=== PATIENT | male | born 1935 | race Asian ===

== ENCOUNTER 2017-10-28 16:39 | Inpatient (IN) | payer OTHER ==
[~2017-10-28] VITALS: Ht 170.2 cm; Wt 82.7 kg
[~2017-10-28 16:39] MED LIST: AZATHIOPRINE50 MG PO; CARVEDILOL25 M1 PO; DILTIAZEM HCL120 M2 PO; DILTIAZEM HCL240 MG PO; LOSARTAN POTAS100 M1 PO; PROSCAR5 MG PO; TERAZOSIN HCL2 MG PO
[2017-10-28 16:41] VITALS: Ht 170.2 cm; Wt 82.7 kg
[2017-10-28 18:05] LABS: PLATELET COUNT 147 x10^3mcL (130-400); RED CELL DISTRIBUTION WIDTH 12.2 % (11.5-14.5)
[2017-10-28 18:06] LABS: BASOPHIL % 0 % (0-2)
[2017-10-28 18:30] LABS: microscopic required? YES; urine erythrocyte TRACE (NEGATIVE)
[2017-10-28 18:38] LABS: CALCIUM 7.9 mg/dL (8.5-10.1); CARBON DIOXIDE 27.5 mmol/L (21-32); CHLORIDE SERUM 100 mmol/L (98-107); GLUCOSE SERUM 125 mg/dL (74-106); SODIUM SERUM 135 mmol/L (136-145)
[2017-10-28 18:43] LABS: ALBUMIN 2.9 g/dL (3.4-5.0); ALKALINE PHOSPHATASE 60 U/L (46-116); ALT/SGPT 41 U/L (16-63); AST/SGOT 27 U/L (15-37); TOTAL PROTEIN, SERUM 7.1 g/dL (6.4-8.2)
[2017-10-28] MEDS ORDERED: SIMVASTATIN10 M1 PO (18:44)
[2017-10-28 20:15] VITALS: BP 150/72
[2017-10-28 20:18] LABS: MAGNESIUM 2.1 mg/dL (1.8-2.4); PHOSPHOROUS 2.4 mg/dL (2.5-4.9)
[2017-10-28 20:26] LABS: FREE T4 1.16 ng/dL (0.76-1.46); FREE THYROXINE INDEX 2.1 ug/dL (1.4-4.5); T3 TOTAL 0.63 ng/mL; T4(THYROXINE) 5.8 ug/dL (4.7-13.3)
[2017-10-28 20:47] LABS: AMPHETAMINE QUAL UR NONE DETECTED
[2017-10-29 00:43] VITALS: BP 150/72
[2017-10-29 04:12] VITALS: BP 155/75
[2017-10-29 07:32] LABS: CALCIUM 7.7 mg/dL (8.5-10.1); CARBON DIOXIDE 26.7 mmol/L (21-32); CHLORIDE SERUM 103 mmol/L (98-107); CHOLESTEROL 164 mg/dL (<200); CHOLESTEROL/HDL RATIO 3.2; CREATININE SERUM 0.8 mg/dL (0.7-1.3); GLUCOSE SERUM 118 mg/dL (74-106); HDL CHOLESTEROL 52 mg/dL (40-60); POTASSIUM SERUM 3.4 mmol/L (3.5-5.1); SODIUM SERUM 138 mmol/L (136-145); TRIGLYCERIDES 51 mg/dL (<150)
[2017-10-29 07:34] LABS: BASOPHIL % 0.3 % (0-2); PLATELET COUNT 140 x10^3mcL (130-400)
[2017-10-29 08:58] VITALS: BP 133/66
[2017-10-29 16:30] VITALS: BP 144/69
[2017-10-29 21:30] VITALS: BP 166/79
[2017-10-30 09:04] LABS: BASOPHIL % 0.3 % (0-2); PLATELET COUNT 145 x10^3mcL (130-400); RED CELL DISTRIBUTION WIDTH 12.3 % (11.5-14.5)
[2017-10-30 09:09] LABS: CALCIUM 7.9 mg/dL (8.5-10.1); CARBON DIOXIDE 26.4 mmol/L (21-32); CHLORIDE SERUM 101 mmol/L (98-107); GLUCOSE SERUM 187 mg/dL (74-106); MAGNESIUM 1.8 mg/dL (1.8-2.4); PHOSPHOROUS 2.2 mg/dL (2.5-4.9); POTASSIUM SERUM 3.4 mmol/L (3.5-5.1); SODIUM SERUM 136 mmol/L (136-145)
[2017-10-30 10:17] VITALS: BP 120/57
[2017-10-30 13:36] VITALS: BP 105/54
[2017-10-30 17:35] VITALS: BP 105/62
[2017-10-30 21:35] VITALS: BP 108/60
[2017-10-31 05:02] VITALS: BP 126/71
[2017-10-31 06:40] LABS: BASOPHIL % 0.3 % (0-2); PLATELET COUNT 179 x10^3mcL (130-400); RED CELL DISTRIBUTION WIDTH 12.3 % (11.5-14.5)
[2017-10-31 07:33] LABS: CALCIUM 8.1 mg/dL (8.5-10.1); CARBON DIOXIDE 25.8 mmol/L (21-32); CHLORIDE SERUM 98 mmol/L (98-107); CREATININE SERUM 0.9 mg/dL (0.7-1.3); GLUCOSE SERUM 118 mg/dL (74-106); MAGNESIUM 1.9 mg/dL (1.8-2.4); PHOSPHOROUS 2.4 mg/dL (2.5-4.9); POTASSIUM SERUM 3.5 mmol/L (3.5-5.1); SODIUM SERUM 136 mmol/L (136-145)
[2017-10-31 11:00] VITALS: BP 122/66
[2017-10-31 15:04] VITALS: BP 100/53
[2017-10-31 19:07] VITALS: BP 119/61
[2017-10-31 21:00] VITALS: BP 136/73
[2017-11-01 05:27] VITALS: BP 126/59
[2017-11-01 06:54] LABS: BASOPHIL % 0.6 % (0-2); PLATELET COUNT 171 x10^3mcL (130-400); RED CELL DISTRIBUTION WIDTH 12.3 % (11.5-14.5)
[2017-11-01 06:58] LABS: CALCIUM 7.9 mg/dL (8.5-10.1); CARBON DIOXIDE 26.8 mmol/L (21-32); CHLORIDE SERUM 103 mmol/L (98-107); CREATININE SERUM 0.9 mg/dL (0.7-1.3); GLUCOSE SERUM 102 mg/dL (74-106); MAGNESIUM 1.9 mg/dL (1.8-2.4); PHOSPHOROUS 3.3 mg/dL (2.5-4.9); POTASSIUM SERUM 3.8 mmol/L (3.5-5.1); SODIUM SERUM 137 mmol/L (136-145)
[2017-11-01 08:00] VITALS: BP 133/58
[2017-11-01] MEDS ORDERED: LEVAQUIN750 MG PO (11:12)
[2017-11-01] MEDS ORDERED: CLEOCIN HCL300 MG PO (11:13)
[2017-11-01] MEDS ORDERED: LAC PO (11:15)
[2017-11-01 12:22] VITALS: BP 131/67
[2017-11-01 13:29] VITALS: BP 131/67
[2017-11-01 15:08] VITALS: BP 114/67
[2017-11-01] MEDS ORDERED: XARELTO15 M1 PO (15:15)
[2017-11-01] MEDS ORDERED: CARCD120 PO (15:15)
== END 2017-11-01 16:45 | disposition home or self-care (01) | DRG 177 ==
LOC: ED 16:39 → DU 18:30
PROVIDERS: Emergency Medicine; Family Medicine; Family Medicine Sports Medicine; Student in an Organized Health Care Education/Training Program
DX: J69.0 Pneumonitis due to inhalation of food and vomit (principal); E43 Unspecified severe protein-calorie malnutrition; K50.90 Crohn's disease, unspecified, without complications; J98.11 Atelectasis; I10 Essential (primary) hypertension; E87.6 Hypokalemia; D36.10 Benign neoplasm of peripheral nerves and autonomic nervous system, unspecified; E86.0 Dehydration; N40.0 Benign prostatic hyperplasia without lower urinary tract symptoms; E83.39 Other disorders of phosphorus metabolism; R31.9 Hematuria, unspecified; I48.91 Unspecified atrial fibrillation; Z68.29 Body mass index [BMI] 29.0-29.9, adult
CPT/HCPCS: 36600; 83880; 84439; 92610-GN; 94150; J1956; J3490; J7030; J7050; J7620; Q0092